=== PATIENT | female | born 1960 | race Caucasian/White ===

== ENCOUNTER 2021-02-14 15:29 | Outpatient (REF) | payer BC, SELFPAY ==
[2021-02-14 16:23] LABS: Rheumatoid Factor < 15.0 IU/mL (<15.0)
[2021-02-14 16:43] LABS: Erythrocyte Sedimentation Rate 7 MM/HR (0-20)
[2021-02-14 16:45] LABS: Thyroid Stimulating Hormone 1.22 uIU/mL (0.32-4.0)
[2021-02-16 14:26] LABS: Anti Nuclear Antibody Screen NEGATIVE (NEGATIVE)
[2021-02-17 12:41] LABS: IgA 201 mg/dL (47-310); IgG 1050 mg/dL (600-1640); IgM 28 mg/dL (50-300)
== END 2021-02-14 15:30 | disposition home or self-care (01) ==
LOC: HO.LAB 15:29
PROVIDERS: PCP Internal Medicine; Visit Provider Psychiatry & Neurology Neurology
DX: I73.00 Raynaud's syndrome without gangrene (principal)
CPT/HCPCS: 36415; 82784; 84443; 85652; 86038; 86039; 86334; 86431